=== PATIENT | male | born 2000 | race African-American/Black ===

== ENCOUNTER 2022-03-29 11:34 | Emergency (ER) | payer SELFPAY ==
[2022-03-29] MEDS ORDERED: cefTRIAXone\\ROCEPHIN 500 MG VIAL ONE (12:43)
[2022-03-29] MEDS ORDERED: Sterile Water 10 ML ONE (12:43)
[2022-03-29 13:00] LABS: Bilirubin Neg (Negative); Blood, Urine 25 (Negative); Clarity Slightly Cloudy (Clear); Glucose, Urine (Dipstick) Normal (Negative); Ketone, Urine 5 mg/dL (Negative); Leukocyte 500 (Negative); Nitrite Negative (Negative); Protein, Urine (Dipstick) 15 mg/dl (Neg-Trace); Urobilinogen Normal mg/dL (Less than 2)
[2022-03-29 13:12] LABS: Bacteria/HPF Rare-Few HPF (None Seen); Squamous Epithelial 0-3 HPF (0-3); WBC/HPF 21-50 HPF (0-3)
[2022-03-29 20:24] LABS: Chlam.trachomatis by PCR,Urine DETECTED (NotDetected)
== END 2022-03-29 12:53 | disposition home or self-care (01) ==
LOC: CSHERS 11:34
DX: R36.9 Urethral discharge, unspecified (principal); Z20.2 Contact with and (suspected) exposure to infections with a predominantly sexual mode of transmission; F17.210 Nicotine dependence, cigarettes, uncomplicated
CPT/HCPCS: 81003; 81015; 87491; 87591; 96372; 99283; J0696